=== PATIENT | female | born 1975 | race Hispanic/Latino ===

== ENCOUNTER 2019-04-24 13:01 | Emergency (ER) | payer OTHER ==
[~2019-04-24] VITALS: Ht 157.5 cm; Wt 74.8 kg
--- OUTSIDE RECORDS SUMMARY | 2019-04-24 13:04 | XMS REPORT | Encounter Summary ---
Author Organization Unknown Address [address] [place] [id number] Phone [phone] Reason for Visit Medical Complaint Instructions 1. Acute upper respiratory infection prednisone 20 mg tablet upper respiratory infection (cold): care instructions Bromfed DM 2 mg-30 mg-10 mg/5 mL syrup albuterol sulfate HFA 90 mcg/actuation aerosol inhaler Discussion Note: None recorded. Plan of Care Patient Instructions Please drink plenty of fluids, rest, good hand washing, cover your mouth while coughing and sneezing. Try warm salt water gargles, throat lozanges, soups ortea with honey and/or lemon juice to soothe the throat.Take ibuprofen or tylenol every 6 hours as needed for fever and aches. Please read all the side effects of the medications, if you develop any side effects immediately stop the medication and please contact your PCP/UC/ER or [facility] or call 911. Follow up with PCP/UC/ER or seek care if symptomsget worseor no improvement in 3 to 4 days. Patient verbalizes understanding and agrees to the plan. Reminders Provider Appointments None recorded. Lab None recorded. Referral None recorded. Procedures None recorded. Surgeries None recorded. Imaging None recorded. Medications Name Start Date albuterol sulfate HFA 90 mcg/actuation aerosol inhaler Inhale 2 puffs every 4-6 hours by inhalation route as needed for wheezing. amoxicillin 875 mg tablet benzonatate 100 mg capsule Bromfed DM 2 mg-30 mg-10 mg/5 mL syrup Take 10 mL every 6 hours by oral route as needed for cough. fluticasone 50 mcg/actuation nasal spray,suspension montelukast 10 mg tablet prednisone 20 mg tablet Take 1 tablet every day by oral route with meals for 5 days. Medications Administered None recorded. Vitals Height Weight BMI Blood Pressure 5 ft 2 in 142 lbs 26 130/83 Lab Results None recorded. Allergies Name Reaction Severity Onset Codeine Other Mild Phenergan Other Mild Problems Name Status Onset Date Source Streptococcal Sore Throat Active Encounter Acute Sinusitis Active Encounter Upper Respiratory Infection Active Encounter Acute Upper Respiratory Infection Active Encounter Viral Sinusitis Active Encounter Allergic Rhinitis Active Encounter Procedures Date Name Performed by Delivery Information not available Cholecystectomy Information not available Hysterectomy Information not available Vaccine List Vaccine Type Influenza, injectable, MDCK, preservative free 08/05/2013 influenza, seasonal, injectable 07/20/2015 Tdap 02/17/2009 Social History Smoking Status Never Smoker Past Encounters 07/26/2016 Acute Upper Respiratory Infection Huma Berger, CHUTE MAN: [address] [place] [address], Ph. History of Present Illness [id number] Reported By: Patient HPI: Location: head/sinuses. Quality: productive cough, colored phlegm, nasal/sinus congestion, dry cough, wheezy cough. Duration: 3days. Severity: moderate. Onset/Timing: sudden. Context: no sick contacts, no foreign travel, non-smoker, allergies. Modifying factors: OTC medication. Associated Symptoms: no shortness of breath, no wheezing, no change in number of pillows needed to sleep at night, no sweats, no significant weight gain, no significant weight loss, no morning cough, no sore throat, no vomiting, no diarrhea, no rash, no nausea, yellow sputum Review of Systems Basic Reported By: Patient Constitutional: Constitutional: no fever Eyes: Eyes: no eye complaints Pgis-Hsxp-Sajfs-Throat: Ears: no ear complaints. Nose: nose/sinus problems. Mouth/Throat: no sore throat, no bleeding gums, no mouth complaints, no teeth problems Cardiovascular: Cardiovascular: no chest pain, no shortness of breath, no known heart murmur Respiratory: Respiratory: no shortness of breath, cough, wheezing Gastrointestinal: Gastrointestinal: no abdominal pain, no vomiting / diarrhea Genitourinary: Genitourinary: no urinary complaints, no discharge Musculoskeletal: Musculoskeletal: no muscle weakness, no arthralgias/joint pain, no back pain, muscle aches Skin: Skin: no abnormal / changing mole, no jaundice, no rashes Neurologic: Neurologic: no loss of consciousness, no weakness, no numbness, no seizures, no dizziness, headache Physical Exam Adult Basic, Adult Female Complete Reported By: Patient Constitutional: General Appearance: healthy-appearing, well-nourished, well-developed. Level of Distress: NAD. Ambulation: ambulating normally Psychiatric: Mental Status: active and alert. Orientation: to time, to place, to person Eyes: Lids and Conjunctivae: non-injected, no discharge, no pallor. Pupils: PERRLA. EOM: EOMI. Lens: clear. Sclerae: non-icteric Lpy-Dxdx-Vynlk-Throat: Ears: no lesions on external ear, no outer ear tenderness, EACs clear, TMs clear. Hearing: no hearing loss. Nose: no lesions on external nose, nares patent, no septal deviation, nasal passages clear, no sinus tenderness, nasal discharge--purulent, post nasal drip. Lips, Teeth, and Gums: no mouth or lip ulcers. Oropharynx: moist mucous membranes, no erythema, no exudates, tonsils not enlarged Neck: Neck: supple. Lymph Nodes: no cervical LAD Lungs: Respiratory effort: no dyspnea, no tachypnea. Auscultation: expiratory wheezing Cardiovascular: Heart Auscultation: RRR, no murmurs Neurologic: Gait and Station: normal gait Skin: Inspection and palpation: no rash
--- OUTSIDE RECORDS SUMMARY | 2019-04-24 13:04 | XMS REPORT | Continuity of Care Document ---
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 Name Role Phone [employer] Information Pounce Unavailable Unavailable Problems Problem Status Onset Date Classification Date Reported Comments Source Acute upper respiratory infection 07/26/2016 Diagnosis 07/26/2016 [facility] Streptococcal Sore Throat Problem 07/26/2016 [facility] Acute Sinusitis Problem 07/26/2016 [facility] Upper Respiratory Infection Problem 07/26/2016 [facility] Acute Upper Respiratory Infection Problem 07/26/2016 [facility] Viral Sinusitis Problem 07/26/2016 [facility] Allergic Rhinitis Problem 07/26/2016 [facility] Medications Medication Details Route Status Patient Instructions Ordering Provider Order Date Source 200 ACTUAT Albuterol 0.09 MG/ACTUAT Metered Dose Inhaler albuterol sulfate HFA 90 mcg/actuation aerosol inhaler Inhale 2 puffs every 4-6 hours by inhalation route as needed for wheezing. Active [facility] Amoxicillin 875 MG Oral Tablet amoxicillin 875 mg tablet Active [facility] benzonatate 100 MG Oral Capsule benzonatate 100 mg capsule Active [facility] Brompheniramine Maleate 0.4 MG/ML / Dextromethorphan Hydrobromide 2 MG/ML / Pseudoephedrine Hydrochloride 6 MG/ML Oral Solution [Bromfed DM] Bromfed DM 2 mg-30 mg-10 mg/5 mL syrup Take 10 mL every 6 hours by oral route as needed for cough. Active [facility] Fluticasone propionate 0.05 MG/ACTUAT Metered Dose Nasal [place] fluticasone 50 mcg/actuation nasal spray,suspension Active [facility] montelukast 10 MG Oral Tablet montelukast 10 mg tablet Active [facility] Prednisone 20 MG Oral Tablet prednisone 20 mg tablet Take 1 tablet every day by oral route with meals for 5 days. Active [facility] Allergies, Adverse Reactions, Alerts Substance Category Reaction Severity Reaction type Status Date Reported Comments Source Codeine Other Mild Allergy to substance 11/10/2011 [facility] Phenergan Other Mild Allergy to substance 11/10/2011 [facility] Immunizations Immunization Date Given Site Status Last Updated Comments Source influenza, seasonal, injectable 07/21/2015 completed [facility] Influenza, injectable, MDCK, preservative free 08/06/2013 completed [facility] Tdap 02/18/2009 completed [facility] Results No Data Provided for This Section Pathology Reports No Data Provided for This Section Diagnostic Reports No Data Provided for This Section Consultation Notes No Data Provided for This Section Discharge Summaries No Data Provided for This Section History and Physicals No Data Provided for This Section Vital Signs Vital Sign Value Date Comments Source Diastolic (mm Hg) 83 07/26/2016 [facility] Height 62 07/26/2016 [facility] Systolic (mm Hg) 130 07/26/2016 [facility] Weight 142 07/26/2016 [facility] Encounters Location Location Details Encounter Type Encounter Number Reason For Visit Attending Provider ADM Date DC Date Status Source [place] - [facility] - [id number] 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 [id number] Huma Berger 07/26/2016 [facility] Procedures Procedure Code Date Perfomer Comments Source Delivery [facility] Cholecystectomy [facility] Hysterectomy [facility] Assessment and Plan No Data Provided for This Section Plan of Care No Data Provided for This Section Social History Social History Date Source Smoking Status Never Smoker 11/10/2011 [facility] Family History No Data Provided for This Section Advance Directives No Data Provided for This Section Functional Status No Data Provided for This Section
[2019-04-24] MEDS ORDERED: TETANUS/DIPHTHERIA TOX ADULT 0.5 ML SYR IM ONE (13:30)
--- NOTE | 2019-04-24 14:53 | Diagnostic Imaging Report ---
Exam: Right Knee Series.-4 views Right lower leg series-2 views History: Trauma Comparison: None Findings: Right knee: No acute fracture or dislocation. Alignment is anatomic. No joint effusion. Tibia/fibula: No acute fracture or dislocation. Alignment appears anatomic. The soft tissues appear unremarkable. Impression: No acute osseous injury of the right knee or tibia/fibula. Signed by: Taylor Schroeder MD on 04/24/2019 2:49 PM
== END 2019-04-24 15:00 | disposition home or self-care (01) ==
LOC: ER 13:01
DX: S80.01XA Contusion of right knee, initial encounter (principal); S80.211A Abrasion, right knee, initial encounter; W01.0XXA Fall on same level from slipping, tripping and stumbling without subsequent striking against object, initial encounter; Y92.008 Other place in unspecified non-institutional (private) residence as the place of occurrence of the external cause
CPT/HCPCS: 90471; 90714; 99283

== ENCOUNTER 2019-09-19 19:00 | Emergency (ER) | payer OTHER ==
[~2019-09-19] VITALS: Ht 157.5 cm; Wt 74.8 kg
--- OUTSIDE RECORDS SUMMARY | 2019-09-19 19:02 | XMS REPORT ---
Author Author [facility] Address Unknown Phone Unavailable Care Team Providers Care Pr Intern Name Role Phone RUSS Kerwin LUL Unavailable Unavailable Problems This patient has no known problems. Allergies, Adverse Reactions, Alerts This patient has no known allergies or adverse reactions. Medications This patient has no known medications. Results Test Description Test Time Test Comments Text Results Atomic Results Result Comments LOWER LEG RIGHT 2019-04-24 14:47:00 [place] [address] Patient Name: CONNER RICO MR #: [id number] : 1975 Age/Sex: 43/F Req #: [id number] Adm Physician: Ordered by: GUILLERMINA JOHNSON MACHINE WELT BUTTER Report #: [id number] Location: ER Room/Bed: Procedure: [id number] DX/LOWER LEG RIGHT Exam Date: 04/24/19 Exam Time: 1355 REPORT STATUS: Signed Exam: Right Knee Series.-4 views Right lower leg series- 2 views History: Trauma Comparison: None Findings: Right knee: No acute fracture or dislocation. Alignment is anatomic. No joint effusion. Tibia/fibula: No acute fracture or dislocation. Alignment appears anatomic. The soft tissues appear unremarkable. Impression: No acute osseous injury of the right knee or tibia/fibula. Signed by: Marry Schroeder MD on 04/24/2019 2:49 PM Dictated By: MARRY SCHROEDER MD Transcribed By: VINCENT on 04/24/191448 COPY TO: GUILLERMINA JOHNSON NP KNEE RIGHT THREE VIEWS 2019-04-24 14:47:00 [place] [address] Patient Name: CONNER RICO MR #: [id number] : 1975 Age/Sex: 43/F Req #: [id number] Adm Physician: Ordered by: GUILLERMINA JOHNSON NP Report #: [id number] Location: ER Room/Bed: Procedure: [id number] DX/KNEE RIGHT THREE VIEWS Exam Date: 04/24/19 Exam Time: 1355 REPORT STATUS: Signed Exam: Right Knee Series.-4 views Right lower leg series-2 views History: Trauma Comparison: None Findings: Right knee: No acute fracture or dislocation. Alignment is anatomic. No joint effusion. Tibia/fibula: No acute fracture or dislocation. Alignment appears anatomic. The soft tissues appear unremarkable. Impression: No acute osseous injury of the right knee or tibia/fibula. Signed by: Marry Schroeder MD on 04/24/2019 2:49 PM Dictated By: MARRY SCHROEDER MD 144 Transcribed By: VINCENT on 04/24/191448 COPY TO: GUILLERMINA JOHNSON NP
[2019-09-19] MEDS ORDERED: IPRATROPIUM BROMIDE 0.02% 2.5 ML NEB NEB STA (19:12)
[2019-09-19] MEDS ORDERED: ALBUTEROL SULF 0.083% NEB SOLN 3 ML NEB NEB STA (19:12)
[2019-09-19] MEDS ORDERED: ACETAMINOPHEN/CODEINE ELIX 120-12 MG/5 ML UDC NG ONE (19:15)
[2019-09-19] MEDS ORDERED: DEXAMETHASONE SOD PHOS 10 MG/1 ML VIAL IM NR (19:30)
--- NOTE | 2019-09-19 20:03 | Diagnostic Imaging Report ---
EXAMINATION: CHEST 2 VIEWS INDICATION: Cough. Query pneumonia. COMPARISON: None FINDINGS: TUBES and LINES: None. LUNGS: Lungs are well inflated. There is no evidence of pneumonia or pulmonary edema. Small 4 mm nodule opacity in the right upper lung. PLEURA: No pleural effusion or pneumothorax. HEART AND MEDIASTINUM: The cardiomediastinal silhouette is unremarkable. BONES AND SOFT TISSUES: No acute osseous lesion. Soft tissues are unremarkable. UPPER ABDOMEN: No free air under the diaphragm. There are cholecystectomy clips. IMPRESSION: No acute radiographic abnormality. Small 4 mm nodular opacity in the right upper lung, which requires no further follow-up in the absence of risk factor for malignancy. If there is a risk factor for malignancy, an optional follow-up chest CT may be considered. Signed by: Dr. Luis Gutierrez MD on 09/19/2019 7:59 PM
[2019-09-19 20:20] VITALS: BP 143/96
== END 2019-09-19 20:27 | disposition home or self-care (01) ==
LOC: ER 19:00
DX: R05 Cough (principal); J20.9 Acute bronchitis, unspecified; R01.1 Cardiac murmur, unspecified
CPT/HCPCS: 71046; 99282